=== PATIENT | female | born 1985 | race Two or more races ===

== ENCOUNTER 2021-10-01 23:04 | Emergency (ER) | payer BC ==
[~2021-10-01] VITALS: Ht 157.5 cm; Wt 55.5 kg
[2021-10-02 01:15] LABS: Basophils # (auto) 0 10 ^3/uL (0-0.2); Basophils % (auto) 0.5 % (0.0-2.0); Eosinophils # (auto) 0 10 ^3/uL (0-0.8); Eosinophils % (auto) 0.3 % (0.0-7.0); Hematocrit 42.1 % (36.0-46.0); Hemoglobin 14.4 g/dL (12.2-16.2); Lymphocytes # (auto) 1.3 10 ^3/uL (0.4-5.4); Lymphocytes % (auto) 15.9 % (10.0-50.0); Mean Corpuscular Hemoglobin 29.8 pg (28.0-32.0); Mean Corpuscular Hgb Conc. 34.3 g/dL (32.0-36.0); Mean Corpuscular Volume 86.9 fL (80.0-100.0); Monocytes # (auto) 0.4 10 ^3/uL (0-1.3); Monocytes % (auto) 5.1 % (0.0-12.0); Neutrophils # (auto) 6.5 10 ^3/uL (1.6-8.6); Neutrophils % (auto) 78.2 % (37.0-80.0); Red Blood Cells 4.84 10^6/uL (4.0-5.20); Red Cell Distribution Width 13.2 % (11.8-14.3); White Blood Cell 8.3 10^3/uL (4.4-10.8)
[2021-10-02 01:23] LABS: Alanine Aminotransferase 18 U/L (13-56); Albumin 3.6 g/dL (3.4-5.0); Anion Gap 8 (5-15); Aspartate Aminotransferase 13 U/L (15-37); BUN/Creatinine Ratio 16.3; Blood Urea Nitrogen 8 mg/dL (7-18); Calcium 9.3 mg/dL (8.5-10.1); Carbon Dioxide 23 mmol/L (21-32); Chloride 104 mmol/L (98-107); GFR African American 185 mL/min; GFR Non-African American 153 mL/min; Glucose 106 mg/dL (74-106); Potassium 3.9 mmol/L (3.5-5.1); Sodium 135 mmol/L (136-145)
[2021-10-02 01:26] LABS: Alkaline Phosphatase 44 U/L (45-117); Bilirubin, Total < 0.1 mg/dL (0.2-1.0); Total Protein 7.5 g/dL (6.4-8.2)
[2021-10-02 03:00] VITALS: BP 113/70
[2021-10-02 03:21] LABS: Urine Bacteria FEW /hpf (None Seen); Urine Blood Negative /uL (Negative); Urine Mucus FEW (None Seen); Urine Specific Gravity 1.014 (1.001-1.035); Urine WBC 20 /hpf (0 - 5)
[2021-10-02] MEDS ORDERED: NITR-87 PO (03:40)
== END 2021-10-02 04:08 | disposition home or self-care (01) ==
LOC: ER 23:04
DX: O20.0 Threatened abortion (principal); Z3A.10 10 weeks gestation of pregnancy
CPT/HCPCS: 36415; 76801; 80053; 81001; 84702; 85025

== ENCOUNTER 2021-10-22 15:26 | Emergency (ER) | payer BC, MEDICAID ==
[~2021-10-22] VITALS: Ht 157.5 cm; Wt 52.1 kg
[~2021-10-22 15:26] MED LIST: NITR-87 PO
[2021-10-22 16:21] LABS: Urine Bacteria FEW /hpf (None Seen); Urine Blood TRACE /uL (Negative); Urine Mucus FEW (None Seen); Urine Specific Gravity 1.025 (1.001-1.035); Urine WBC 63 /hpf (0 - 5)
[2021-10-22 18:45] VITALS: BP 118/74
[2021-10-22] MEDS ORDERED: CEPH-510 PO (19:13)
== END 2021-10-22 19:19 | disposition home or self-care (01) ==
LOC: ER 15:26
DX: O23.41 Unspecified infection of urinary tract in pregnancy, first trimester (principal); Z3A.12 12 weeks gestation of pregnancy
CPT/HCPCS: 36415; 81001; 84702

== ENCOUNTER 2022-12-18 18:55 | Emergency (ER) | payer BC, MEDICAID ==
[~2022-12-18 18:55] MED LIST changes: +CEPH-510 PO
== END 2022-12-18 19:50 | disposition left against medical advice (07) ==
LOC: ER 18:55
DX: R10.9 Unspecified abdominal pain (principal); Z53.21 Procedure and treatment not carried out due to patient leaving prior to being seen by health care provider